=== PATIENT | male | born 1945 | race Caucasian/White ===

== ENCOUNTER 2016-10-08 05:46 | Day surgery (SDC) | payer OTHER ==
--- NOTE | 2016-09-24 14:15 | GHP ---
[f rep st] HISTORY AND PHYSICAL DATE OF ADMISSION: 10/08/2016 HISTORY AND PHYSICAL: The patient returns to our office for further evaluation of his umbilical hernia. Also reports his primary care provider noticed something in his scrotum, according to the patient. The patient denies any significant gastrointestinal, genitourinary symptoms. The patient has not had any surgery in either of these areas, around the umbilicus or in the area of the scrotum. ALLERGIES: No known drug allergies. MEDICATIONS: Viagra p.r.n., aspirin. PAST MEDICAL HISTORY: None. PAST SURGICAL HISTORY: Lumbar diskectomy. 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 Occasional alcohol use. PHYSICAL EXAM: GENERAL: Patient is a pleasant male in no apparent distress. HEAD AND NECK: Normocephalic atraumatic. HEART: Regular rhythm and rate. CHEST: CTA bilaterally. ABDOMEN: Right greater than left inguinal hernias, umbilical hernia, all soft and reducible. EXTREMITIES: No lower extremity edema. IMPRESSION: A 71-year-old male with bilateral right greater than left inguinal hernias, and umbilical hernia. RECOMMENDATION: 1. Laparoscopic bilateral inguinal hernia. 2. Open umbilical hernia repair. These were discussed in detail with the patient with Dr. Monroe, including risks of infection, nerve injury, recurrent scrotal edema, bleeding. Patient elects to proceed with scheduling surgery for October 08, 2016. /[id number]/MODL MTDD
[2016-10-08] MEDS ORDERED: LR 1,000 ML IV ONE (06:10)
[2016-10-08] MEDS ORDERED: PROPOFOL/EMULSION 500 MG/50 ML BOTTLE IV ONE (06:39)
[2016-10-08] MEDS ORDERED: fentaNYL 250 MCG/5 ML INJ ONE (06:39)
[2016-10-08] MEDS ORDERED: LIDOCAINE 2% 5 ML SDV ONE (06:39)
[2016-10-08] MEDS ORDERED: DEXAMETHASONE 4 MG/ML VIAL ONE (06:41)
[2016-10-08] MEDS ORDERED: BUPIVACAINE 0.5% 30 ML SDV ONE (06:47)
[2016-10-08] MEDS ORDERED: ceFAZolin 2 GM/DEXTROSE 100 ML IV ONE (07:00)
[2016-10-08] MEDS ORDERED: MIDAZOLAM 2 MG/2 ML VIAL ONE (07:15)
[2016-10-08] MEDS ORDERED: ROCURONIUM 50 MG/5 ML VIAL ONE (07:30)
[2016-10-08] MEDS ORDERED: SUCCINYLCHOLINE CHLORIDE*ANESTHESIA ONLY*200 MG/10 ML SYR IVP ONE (07:30)
[2016-10-08] MEDS ORDERED: epHEDrine SULFATE 10 MG/ML SYR ONE ×2 (07:47→08:01)
[2016-10-08] MEDS ORDERED: SKIN ADHESIVE (DERMABOND) 1 EACH TP ONE (08:02)
[2016-10-08] MEDS ORDERED: ONDANSETRON 4 MG/2 ML VIAL ONE (08:18)
[2016-10-08] MEDS ORDERED: KETOROLAC 30 MG/1 ML SDV ONE (08:18)
[2016-10-08] MEDS ORDERED: GLYCOPYRROLATE 0.2 MG/1 ML VIAL ONE (08:21)
--- NOTE | 2016-10-19 21:01 | GOP ---
[f rep st] OPERATIVE REPORT DATE OF OPERATION: 10/08/2016 SURGEON: Taj Monroe MD SAP BASIS ARCHITECT: BRIANA Dial ANESTHESIA: General endotracheal. ANESTHESIOLOGIST: Dr. Lew PREOPERATIVE DIAGNOSIS: Right inguinal hernia and umbilical hernia. POSTOPERATIVE DIAGNOSIS: Right inguinal hernia and umbilical hernia. PROCEDURE PERFORMED: Laparoscopic right inguinal hernia repair and exploration of the left side, op en umbilical hernia repair with mesh. FINDINGS: Patient was found to have a 3 cm umbilical defect. He had a right direct hernia with no evidence of herniation on the left. ESTIMATED BLOOD LOSS: Negligible. DESCRIPTION OF PROCEDURE: Patient taken to the operating room, where he received satisfactory gener al endotracheal anesthesia by Dr. Lew, placed in the supine position, and prepped and draped in the usual sterile fashion. Infraumbilical incision was made, carried down to the rectus sheath which was incised. A subfascial tunnel was developed in the preperitoneal space. That was dissected free with a balloon dissector, which was replaced with CO2 insufflation trocar, and 2 other trocars were placed in the midline und er direct vision. Rajat's ligament was exposed bilaterally. The cords were mobilized. Peritoneum was dissected off the cord structures. There were no indirect sacs. On the left, there was no evidence of herniation . On the right, a direct defect was reduced. A Covidien polyester mesh patch was placed over the in guinal floor and anchored in place with AbsorbaTack, securing it to Rajat's ligament, the lacunar l igament, the anterior abdominal wall, and the lateral abdominal wall outside the internal ring. Hem ostasis was assured. Trocars were removed under direct vision. Pneumoperitoneum was released. Trocar sites were closed with 0 Vicryl for the fascia, 4-0 Monocryl subcuticular stitch for the skin. Attention was turned to the umbilical hernial sac. This was dissected free from the skin of the umb ilicus and the surrounding subcutaneous tissue. The sac was opened at the fascial level. The craig nts were reduced. A preperitoneal subfascial space was created, and a polypropylene mesh patch was inserted and anchored around the periphery with interrupted 0 Ethibond mattress sutures. The defect itself was then closed directly with interrupted 0 Ethibond [id number] sutures. The wound was infiltrated with 0.5% Marcaine. Subcu was closed with 3-0 Vicryl, the skin with a 4-0 Monocryl subcuticular stitch. There were no complications. He was taken to the recovery room in g ood condition. /[id number]/MODL
== END 2016-10-08 11:05 | disposition home or self-care (01) ==
LOC: FSGY 05:46
PROVIDERS: ATTEND Surgery
PROC: 0YU54JZ Supplement Right Inguinal Region with Synthetic Substitute, Percutaneous Endoscopic Approach (ICD-10-PCS; principal; 2016-10-08 07:25)
PROC: 0WUF0JZ Supplement Abdominal Wall with Synthetic Substitute, Open Approach (ICD-10-PCS; principal; 2016-10-08 07:25)
DX: K40.20 Bilateral inguinal hernia, without obstruction or gangrene, not specified as recurrent (principal); K42.9 Umbilical hernia without obstruction or gangrene; Z53.31 Laparoscopic surgical procedure converted to open procedure; N40.0 Benign prostatic hyperplasia without lower urinary tract symptoms; Z85.828 Personal history of other malignant neoplasm of skin
CPT/HCPCS: 49585; 49650; C1727; C1781; J0330; J0690; J1100; J1885; J2250; J2405; J2704; J3010

== ENCOUNTER → 2017-12-05 | Outpatient (CLI) | payer OTHER | LOC: BMCIMAGING 08:39 | PROVIDERS: ATTEND Family Medicine | DX: I70.0 Atherosclerosis of aorta (principal); R93.5 Abnormal findings on diagnostic imaging of other abdominal regions, including retroperitoneum ==

== ENCOUNTER → 2017-12-20 | Outpatient (CLI) | payer OTHER ==
[~2017-12-20] MED LIST: IOPAMIDOL (ISOVUE-300) 100 ML BTL ONE
== END ==
LOC: FIMAGING 14:48
PROVIDERS: ATTEND Family Medicine
DX: K76.89 Other specified diseases of liver (principal); N13.2 Hydronephrosis with renal and ureteral calculous obstruction; I25.10 Atherosclerotic heart disease of native coronary artery without angina pectoris
CPT/HCPCS: 74160; Q9967

== ENCOUNTER 2018-06-17 12:25 | Inpatient (IN) | payer OTHER ==
[2018-06-17 13:22] LABS: PLATELET COUNT 333 10^3/uL (150-400)
[2018-06-17] MEDS ORDERED: HYDROmorphONE/DILAUDID 2 MG/ML INJ IVP ONE (13:40)
[2018-06-17] MEDS ORDERED: ONDANSETRON 4 MG/2 ML VIAL IVP ONE (13:40)
--- NOTE | 2018-06-17 13:45 | EDPHY ---
H & P Stated Complaint: c/o upper abd pressure/discomfort, very tender to palpation, no other sx Time Seen by Provider: 06/17/18 13:00 HPI/ROS: CHIEF COMPLAINT: Severe epigastric pain HISTORY OF PRESENT ILLNESS: 73-year-old male presents with severe epigastric pain. Onset of abdominal pain 3 hr ago. The pain waxes and wanes and is located in the upper abdomen. No radiation of pain and no associated symptoms. Prior similar symptoms over the last few months, usually lasting 1-2 hours and relieved with Tums. Possibly aggravated by food. History of heavy alcohol use, quit 6 months ago. REVIEW OF SYSTEMS: complete 10 point ROS reviewed and is negative except for the noted elements in the HPI - Medical/Surgical History Hx Asthma: No Hx Chronic Respiratory Disease: No Hx Diabetes: No Hx Cardiac Disease: Yes Hx Renal Disease: No Hx Cirrhosis: No Hx Alcoholism: No Hx HIV/AIDS: No Hx Splenectomy or Spleen Trauma: No Other PMH: hyperlipidemia, bph, hernia repair, back surg, tonsillectomy - Social History Smoking Status: Former smoker Alcohol Use: Sober Drug Use: None - Physical Exam Exam: General Appearance: Alert, pleasant, appears in pain Eyes: Pupils equal and round, no conjunctival pallor or injection ENT, Mouth: Mucous membranes moist Neck: Normal inspection Respiratory: Lungs are clear to auscultation Cardiovascular: Regular rate and rhythm Gastrointestinal: Abdomen is soft, epigastric and right upper quadrant tenderness, no peritoneal signs Neurological: A&O, nonfocal exam Skin: Warm and dry, no rash Extremities: Nontender, no pedal edema Psychiatric: Mood and affect normal Constitutional: Initial Vital Signs Temperature (C) 36.5 C 06/17/18 12:47 Heart Rate 57 L 06/17/18 12:47 Respiratory Rate 18 06/17/18 12:47 Blood Pressure 108/71 06/17/18 12:47 O2 Sat (%) 94 06/17/18 12:47 O2 Delivery Mode Room Air Allergies/Adverse Reactions: No Known Allergies Allergy (Verified 06/17/18 12:51) Home Medications: Medication Instructions Recorded Aspirin EC [Aspirin EC 81 mg (*)] 81 mg PO DAILY 06/17/18 Calcium Carbonate [Oyster Shell 500 mg PO DAILY 06/17/18 Calcium 500 mg (*)] Glucosamine Sulfate [Glucosamine 500 mg PO DAILY 06/17/18 Sulfate 500 MG (*)] Multivitamins [Multivitamin (*)] 1 each PO DAILY 06/17/18 Rosuvastatin Calcium [Rosuvastatin 20 mg PO DAILY 06/17/18 Calcium] Tamsulosin HCl [Tamsulosin HCl] 0.8 mg PO DAILY 06/17/18 Terbinafine HCl [Terbinafine HCl] 250 mg PO DAILY 06/17/18 Medical Decision Making ED Course/Re-evaluation: This patient presents with severe epigastric pain, concerning for cholecystitis/ pancreatitis. Dilaudid and Zofran IV given with some relief in pain. Old medical record reviewed. CT scan of the abdomen/pelvis in 12/2017 reveals CAD, aortic calcification, no AAA. Right upper quadrant ultrasound ordered. 2:45 p.m.-LFT's elevated, lipase pending. Ultrasound results discussed with Dr. Haque. Distal common bile duct is dilated, gallbladder wall slightly thickened, no gallstones present. Elevated elevated c/w acute pancreatitis, query CBD stone. Results d/w pt and . The hospitalist service was consulted for admission. Differential Diagnosis: Differential diagnosis includes though it is not limited to appendicitis, cholecystitis, diverticulitis, pyelonephritis, bowel perforation, small bowel obstruction. - Data Points Laboratory Results: Laboratory Results 06/17/18 13:05 06/17/18 13:05 Medications Given: Aspirin Buffered (Aspirin Ec) 81 mg PO DAILY JOSE ALBERTO Stop: 12/15/18 08:59 Last Admin: 06/18/18 08:49 Dose: 81 mg Calcium Carbonate (Oyster Shell Calcium) 500 mg PO DAILY JOSE ALBERTO Stop: 12/15/18 08:59 Last Admin: 06/18/18 08:49 Dose: 500 mg Enoxaparin Sodium (Lovenox) 40 mg SC DAILY JOSE ALBERTO Stop: 12/15/18 08:59 Last Admin: 06/18/18 08:47 Dose: 40 mg Glucosamine Sulfate (Glucosamine Sulfate) 500 mg PO DAILY JOSE ALBERTO Stop: 12/15/18 08:59 Last Admin: 06/18/18 08:49 Dose: 500 mg Sodium Chloride (Ns) 1,000 mls @ 150 mls/hr IV CONT JOSE ALBERTO Stop: 12/14/18 14:59 Last Admin: 06/18/18 08:57 Dose: 1,000 mls Ketorolac Tromethamine (Toradol) 15 - 30 mg IVP Q6HRS PRN PRN Reason: Pain, Moderate Stop: 06/22/18 17:59 Last Admin: 06/18/18 06:03 Dose: 15 mg Multivitamins (Tab-A-Dari) 1 each PO DAILY JOSE ALBERTO Stop: 12/15/18 08:59 Last Admin: 06/18/18 08:49 Dose: 1 each Tamsulosin HCl (Flomax) 0.8 mg PO DAILY JOSE ALBERTO Stop: 12/15/18 08:59 Last Admin: 06/18/18 08:49 Dose: 0.8 mg Discontinued Medications Hydromorphone HCl (Dilaudid) 0.5 mg IVP EDNOW ONE Stop: 06/17/18 13:41 Last Admin: 06/17/18 13:44 Dose: 0.5 mg Influenza Virus Vaccine Quadrival (Flulaval Quad [id number] (6mo+)) 0.5 ml IM .ONCE ONE Stop: 06/18/18 10:51 Last Admin: 06/18/18 11:15 Dose: 0.5 ml Ondansetron HCl (Zofran) 4 mg IVP EDNOW ONE Stop: 06/17/18 13:41 Last Admin: 06/17/18 13:45 Dose: 4 mg Departure - Departure Disposition: [facility] Acute Clinical Impression: Acute pancreatitis Qualifiers: Pancreatitis type: other Acute pancreatitis complication: unspecified Qualified Code(s): K85.80 - Other acute pancreatitis without necrosis or infection Condition: Fair
[2018-06-17] MEDS ORDERED: ONDANSETRON 4 MG/2 ML VIAL IVP PRN (14:52)
[2018-06-17] MEDS ORDERED: ONDANSETRON DISINTEGRATING 4 MG TAB PO PRN (14:52)
[2018-06-17] MEDS ORDERED: PROMETHAZINE HCL 25 MG/ML INJ IVP PRN (14:52)
[2018-06-17] MEDS ORDERED: PROMETHAZINE HCL 25 MG TAB PO PRN (14:52)
[2018-06-17] MEDS ORDERED: HYDROmorphONE/DILAUDID 1 MG/ML INJ IVP PRN (14:52)
--- NOTE | 2018-06-17 15:42 | ASMTCMCOM ---
CM Note CM Note Notes: Pt is a 73 y/o man admitted for severe epigastric pain. Pt has a hx of heavy etoh use. Pt quit about 6 months ago. Pt will most likely d/c independent when medically stable. No therapies ordered at this time. CM available for changes. Plan: Independent Date Signed: 06/17/2018 03:42 PM Electronically Signed By:RYANN Cabrera
--- NOTE | 2018-06-17 15:53 | CPEKG ---
Test Reason : OPEN Blood Pressure : / mmHG Vent. Rate : 081 BPM Atrial Rate : 082 BPM P-R Int : 162 ms QRS Dur : 101 ms QT Int : 375 ms P-R-T Axes : 053 -49 041 degrees QTc Int : 436 ms Sinus rhythm Left anterior fascicular block Confirmed by Beba Arredondo ([id number]) on 06/17/2018 3:53:24 PM Referred By: Confirmed By:Beba Arredondo
--- NOTE | 2018-06-17 16:18 | PDGENHP ---
History and Physical - Chief Complaint Acute abdominal pain - History of Present Illness Primary care provider: Dr. Sim Huerta HPI: 73-year-old male presenting with acute abdominal pain located in the epigastric area, characterized as severe pain which waxes and wanes, onset of symptoms at 10:00 a.m. On the day of presentation and duration persistent thereafter. The patient was eating grits with butter and eggs for breakfast during his onset of symptoms, watching the [employer] game. He reports that he has experienced similar pain in the similar location intermittently in the past, most notably in the evenings over the past 6 weeks, with duration of symptoms approximately 1-2 hours and alleviation with Tums. On the day of this presentation, the symptom was significantly worse, and was only alleviated with some Dilaudid received in the emergency department. Since receiving that medication, patient has had some associated fatigue, hypoxia, with an SpO2 84% on room air and ashen appearance. History Information - Allergies/Home Medication List Allergies/Adverse Reactions: No Known Allergies Allergy (Verified 06/17/18 12:51) Home Medications: Aspirin 10/07/16 [Last Taken 10/07/16] Herbals/Supplements -Info Only 10/07/16 [Last Taken 10/07/16] Viagra 10/07/16 [Last Taken 10/01/16] Rosuvastatin Calcium 06/17/18 [Last Taken Unknown] I have personally reviewed and updated: family history, medical history, social history, surgical history - Past Medical History Additional medical history: BPH. Hyperlipidemia. In onychyomycosis, initiated medication 3 days ago. Numerous skin cancers. Numerous colonic polyps - Surgical History Additional surgical history: Umbilical hernia repair 2017. Tonsillectomy. Back surgery several decades ago. Numerous colonoscopies with polyp removals - Family History Additional family history: Mother with colon cancer, no family history of biliary cancers - Social History Smoking Status: Former smoker (With intermittent usage) Alcohol Use: Sober (Quit 6 months ago but with previous heavy usage) Drug Use: None Additional social history: Independent in his ADLs Review of Systems Review of Systems: ROS: 10pt was reviewed & negative except for what was stated in HPI & below Constitutional: Reports: other (Lethargy) Gastrointestinal: Reports: abdominal pain, diarrhea (For the past 20 years) Physical Exam Physical Exam: Temp Pulse Resp BP Pulse Ox 36.7 C 83 18 161/68 H 92 06/17/18 15:27 06/17/18 15:30 06/17/18 15:27 06/17/18 15:27 06/17/18 15:30 O2 (L/minute) 3 Constitutional: no apparent distress, uncomfortable, other (Acutely ill- appearing, ashen appearance) Eyes: PERRL, anicteric sclera, EOMI Ears, Nose, Mouth, Throat: moist mucous membranes, hearing normal, ears appear normal, no oral mucosal ulcers Cardiovascular: regular rate and rhythym, systolic murmur (2/6 systolic at the sternum), No edema Respiratory: reduced air movement (Bilateral bases), No expiratory wheeze, No inspiratory crackles, No bronchial breath sounds Gastrointestinal: normoactive bowel sounds, tenderness (Midepigastric area), No hepatosplenomegally, No guarding, No distension Skin: warm, No rash Neurologic: AAOx3, No facial droop Psychiatric: not anxious, not encephalopathic, thought process linear, flat affect, No agitated Lab Data & Imaging Review 06/17/18 13:05 06/17/18 13:05 WBC 11.96 10^3/uL (3.80-9.50) H 06/17/18 13:05 RBC 4.96 10^6/uL (4.40-6.38) 06/17/18 13:05 Hgb 15.7 g/dL (13.7-17.5) 06/17/18 13:05 Hct 43.7 % (40.0-51.0) 06/17/18 13:05 MCV 88.1 fL (81.5-99.8) 06/17/18 13:05 MCH 31.7 pg (27.9-34.1) 06/17/18 13:05 MCHC 35.9 g/dL (32.4-36.7) 06/17/18 13:05 RDW 14.4 % (11.5-15.2) 06/17/18 13:05 Plt Count 333 10^3/uL (150-400) 06/17/18 13:05 MPV 10.2 fL (8.7-11.7) 06/17/18 13:05 Neut % (Auto) 82.0 % (39.3-74.2) H 06/17/18 13:05 Lymph % (Auto) 9.4 % (15.0-45.0) L 06/17/18 13:05 Hubbard % (Auto) 6.6 % (4.5-13.0) 06/17/18 13:05 Eos % (Auto) 1.2 % (0.6-7.6) 06/17/18 13:05 Baso % (Auto) 0.5 % (0.3-1.7) 06/17/18 13:05 Nucleat RBC Rel Count 0.0 % (0.0-0.2) 06/17/18 13:05 Absolute Neuts (auto) 9.80 10^3/uL (1.70-6.50) H 06/17/18 13:05 Absolute Lymphs (auto) 1.13 10^3/uL (1.00-3.00) 06/17/18 13:05 Absolute Monos (auto) 0.79 10^3/uL (0.30-0.80) 06/17/18 13:05 Absolute Eos (auto) 0.14 10^3/uL (0.03-0.40) 06/17/18 13:05 Absolute Basos (auto) 0.06 10^3/uL (0.02-0.10) 06/17/18 13:05 Absolute Nucleated RBC 0.00 10^3/uL (0-0.01) 06/17/18 13:05 Immature Gran % 0.3 % (0.0-1.1) 06/17/18 13:05 Immature Gran # 0.04 10^3/uL (0.00-0.10) 06/17/18 13:05 Sodium 141 mEq/L (135-145) 06/17/18 13:05 Potassium 4.3 mEq/L (3.3-5.0) 06/17/18 13:05 Chloride 103 mEq/L (97-110) 06/17/18 13:05 Carbon Dioxide 28 mEq/l (22-31) 06/17/18 13:05 Anion Gap 10 mEq/L (6-14) 06/17/18 13:05 BUN 23 mg/dL (7-23) 06/17/18 13:05 Creatinine 1.1 mg/dL (0.7-1.3) 06/17/18 13:05 Estimated GFR > 60 06/17/18 13:05 Glucose 106 mg/dL (70-100) H 06/17/18 13:05 Calcium 10.4 mg/dL (8.5-10.4) 06/17/18 13:05 Total Bilirubin 1.3 mg/dL (0.1-1.4) 06/17/18 13:05 Conjugated Bilirubin 0.9 mg/dL (0.0-0.5) H 06/17/18 13:05 Unconjugated Bilirubin 0.4 mg/dL (0.0-1.1) 06/17/18 13:05 AST 201 IU/L (17-59) H 06/17/18 13:05 ALT 249 IU/L (21-72) H 06/17/18 13:05 Alkaline Phosphatase 261 IU/L (38-126) H 06/17/18 13:05 Total Protein 7.0 g/dL (6.3-8.2) 06/17/18 13:05 Albumin 4.0 g/dL (3.5-5.0) 06/17/18 13:05 Lipase 81220 IU/L (23-300) H 06/17/18 13:05 Urine Color YELLOW 06/17/18 15:05 Urine Appearance MODERATELY TURBID 06/17/18 15:05 Urine pH 7.0 (5.0-7.5) 06/17/18 15:05 Ur Specific [place] 1.018 (1.002-1.030) 06/17/18 15:05 Urine Protein NEGATIVE (NEGATIVE) 06/17/18 15:05 Urine Ketones NEGATIVE (NEGATIVE) 06/17/18 15:05 Urine Blood NEGATIVE (NEGATIVE) 06/17/18 15:05 Urine Nitrate NEGATIVE (NEGATIVE) 06/17/18 15:05 Urine Bilirubin NEGATIVE (NEGATIVE) 06/17/18 15:05 Urine Urobilinogen NEGATIVE EU (0.2-1.0) 06/17/18 15:05 Ur Leukocyte Esterase NEGATIVE (NEGATIVE) 06/17/18 15:05 Urine Glucose NEGATIVE (NEGATIVE) 06/17/18 15:05 Visualized and Interpreted EKG results: Yes EKG Interpretation: Positive for: other (Normal sinus rhythm with left anterior fascicular block) Assessment & Plan Assessment: 73-year-old male presents with acute pancreatitis Plan: 1. Pancreatitis. Acute, new problem this provider, further workup indicated. Potential etiologies include gallstone induced verses statin induced verses chronic damage from alcohol use and triggered by fatty meal, lipase 16,000 -outside records reviewed including 12/20/[address] which demonstrated left lobe hepatic hemangioma but no other biliary abnormalities at that time, no evidence of underlying malignancy at that time -significant transaminitis with ultrasound demonstrating dilated distal common bile duct with gallbladder thickening -will get MRCP to evaluate for gallstone pancreatitis -NPO with sips and chips, high rate IV fluids, supportive pain management -cycle in IV Toradol given possible respiratory suppression from opiate -heat pad supportively -check hemoglobin A1c given long history of alcohol use, currently sober -patient appears acutely ill and his situation certainly could evolve into necrotizing pancreatitis, will get blood cultures -if the patient becomes febrile or is clinically worsening, will have low threshold to initiate IV antibiotics and get stat CT with IV contrast of the abdomen 2. Suspected atelectasis. Hypoxia, hypoventilation, check chest x-ray to evaluate the extent 3. Hyperlipidemia. Hold statin given potential interaction with pancreatitis Diet. NPO with IV fluids Prophylaxis. High risk patient, Lovenox 40 Code. Full Disposition. Anticipated discharge uncertain this time, anticipated length stay is greater than 48 hr for reasonable medical necessity including acute pancreatitis requiring IV pain medications., NPO status, IV fluids. Discussed with Dr. Beba Arredondo, we both agree the patient warrants inpatient admission and is safe for the [facility] floor.
[2018-06-17] MEDS ORDERED: GADOBUTROL 10 ML VIAL IVP ONE (16:20)
[2018-06-17] MEDS: KETOROLAC 15 MG/1 ML SDV IVP PRN (16:59)
--- NOTE | 2018-06-17 19:44 | PDMN ---
Medical Necessity Medical necessity: MCG: M250 pancreatitis. pt presents with acute abd. pain hypoxia ( 84%) in ED S/p dilaudid, Lipase 16,000, sig. transaminitis U/S demonstrating dilated distal common bile duct with gallbladder thckening. pt will be NPO with IVF, IV pain, anticipate > 2 MN for acutely in pt.
[2018-06-17] MEDS: NS 1,000 ML IV SCH (22:10)
[2018-06-18] MEDS: NS 1,000 ML IV SCH ×2 (05:00→08:57)
[2018-06-18] MEDS: KETOROLAC 15 MG/1 ML SDV IVP PRN (06:03)
[2018-06-18 06:10] LABS: PLATELET COUNT 285 10^3/uL (150-400)
[2018-06-18] MEDS: TAMSULOSIN HCL 0.4 MG CAP PO SCH (08:49)
[2018-06-18] MEDS ORDERED: ASPIRIN EC 81 MG TAB PO SCH (09:00)
[2018-06-18] MEDS ORDERED: MULTIVITAMINS 1 EACH TAB PO SCH (09:00)
[2018-06-18] MEDS ORDERED: GLUCOSAMINE SULF 500 MG CAP PO SCH (09:00)
[2018-06-18] MEDS ORDERED: CALCIUM CARBONATE 500 MG TAB PO SCH (09:00)
[2018-06-18] MEDS ORDERED: ENOXAPARIN 40 MG/0.4 ML SYR SC SCH (09:00)
[2018-06-18 14:08] LABS: PLATELET COUNT 243 10^3/uL (150-400)
--- NOTE | 2018-06-18 14:50 | SOAPPROG ---
ABHIJIT Progress Note Assessment/Plan: Assessment: Dr. Ramirez will see in am and discuss ERCP followed by jovany camara under 1 anesthesia Plan: 06/18/18 14:49 Objective: Vital Signs Temp Pulse Resp BP Pulse Ox 36.8 C 54 L 12 98/60 L 95 06/18/18 08:00 06/18/18 08:00 06/18/18 08:00 06/18/18 08:00 06/18/18 08:00 Laboratory Results 06/18/18 13:55 06/18/18 05:10 06/17/18 06/18/18 06/19/18 05:59 05:59 05:59 Intake Total 0 2131 Output Total 400 Balance -400 2131 ICD10 Worksheet Patient Problems: Problems Problem Status Onset Acute pancreatitis Acute
--- NOTE | 2018-06-18 14:56 | HOSPPROG ---
Hospitalist Progress Note Assessment/Plan: 73-year-old male presents with acute pancreatitis 1. Pancreatitis, acute -ongoing transaminitis, very elev WBC, afebrile, increasing bili, reviewed MRCP -discussed with Elias Shafer and Margo, plan for ERCP and lap jax tomorrow -outside records 12/20/[address] which demonstrated left lobe hepatic hemangioma but no other biliary abnormalities at that time, no evidence of underlying malignancy at that time -NPO with sips and chips, IV fluids, supportive pain management -hemoglobin A1c given long history of alcohol use, currently sober, lab pending -bd cxs pending 2. atelectasis -encourage IS 3. Hyperlipidemia. Hold statin given potential interaction with pancreatitis Diet. NPO with IV fluids Prophylaxis. High risk patient, Lovenox FULL CODE PCP Dr Huerta Disposition. Anticipated discharge uncertain this time, anticipated length stay is greater than 48 hr for reasonable medical necessity including acute pancreatitis requiring IV pain medications, NPO status, IV fluids, planned procedures tomorrow Subjective: Pain still present, was much worse in the AM- OK control now. Denies n/v. Was planning to go to [place] this week- advised him this was very unlikely! Objective: Vital Signs Temp Pulse Resp BP Pulse Ox 98.2 F 54 L 12 98/60 L 95 06/18/18 08:00 06/18/18 08:00 06/18/18 08:00 06/18/18 08:00 06/18/18 08:00 Laboratory Results 06/18/18 13:55 06/18/18 05:10 06/17/18 06/18/18 06/19/18 11:59 11:59 11:59 Intake Total 2131 Output Total 400 Balance 1731 - Physical Exam Constitutional: no apparent distress, appears nourished Eyes: anicteric sclera Ears, Nose, Mouth, Throat: moist mucous membranes, hearing normal Cardiovascular: regular rate and rhythym, No edema Respiratory: no respiratory distress, no rales or rhonchi, clear to auscultation Gastrointestinal: normoactive bowel sounds, No guarding, No rebound, No distension Skin: warm, normal color Psychiatric: interacting appropriately, not anxious, not encephalopathic, thought process linear ICD10 Worksheet Patient Problems: Problems Problem Status Onset Acute pancreatitis Acute
[2018-06-18] MEDS: D5W 1/2 NS W/ 20 KCl/L 1,000 ML IV SCH (15:18)
--- NOTE | 2018-06-18 15:24 | GCON ---
GI INPATIENT CONSULTATION DATE OF CONSULTATION: 06/18/2018 I was kindly requested to see Kulwant by Dr. Avis Carmona in consultation for a chief complaint of abdominal pain. He is a 73-year-old white male who presented with acute epigastric pain. He has had similar pain over the last 6 weeks. The pain was severe. It has given him some fatigue. He denies fever, rigors, chills. No presenting vomiting. PAST MEDICAL HISTORY: 1. As above. 2. BPH. 3. Elevated lipids. 4. Umbilical hernia repair. 5. Tonsillectomy. 6. Back surgery. 7. Otherwise, noncontributory. INPATIENT MEDICATIONS: Include aspirin, Lovenox, Toradol as needed, IV fluids, normal saline 150 mL an hour and Flomax. ALLERGIES: No known drug allergies. SOCIAL HISTORY: Previous heavy alcohol use, but quit 6 months ago. FAMILY HISTORY: Negative for similar abdominal pain. REVIEW OF SYSTEMS: Positive pertinent review of systems as per my HPI. Otherwise, a complete review of systems is negative. PHYSICAL EXAM: CONSTITUTIONAL: Nontoxic-appearing, pleasant gentleman. VITAL SIGNS: Stable. SKIN: Warm, dry. EYES: Pupils equal, round, reactive to light and accommodation. EARS, NOSE MOUTH AND THROAT: Oropharynx without masses, moist mucosa. CARDIOVASCULAR: Normal S2, normal PMI. RESPIRATORY: Lungs clear to auscultation and percussion anteriorly. GASTROINTESTINAL: Abdomen with some moderate epigastric tenderness. Soft. NEUROLOGIC: Grossly nonfocal, cranial nerves grossly intact. PSYCHIATRIC: Orientation, insight appropriate. MUSCULOSKELETAL: Strength grossly normal throughout, normal station. LABORATORIES: [place] [id number]. Normal basic metabolic panel. Total bilirubin 5 with a direct bilirubin of 3.9. AST 228 with an ALT of 412. Alkaline phosphatase 218. Lipase yesterday 16,532. Urinalysis negative. MRCP shows acute pancreatitis. Gallstones. Question of a small CBD stone 1 cm common bile duct. ASSESSMENT: Gallstone pancreatitis. PLAN: 1. Will use today to continue to let the pancreas "cool off". 2. Recheck lipase in the morning. 3. Recheck liver function tests in the morning. If they remain elevated, and his lipase and pancreatitis have improved, we can then proceed with a preoperative ERCP. If they are showing a decreasing trend, we will hold off on ERCP, and instead the patient will undergo laparoscopic cholecystectomy with an intraoperative cholangiogram. If the intraoperative cholangiogram is positive, we can always do a postop ERCP, with a good chance of success. 4. We will recheck a white count tomorrow to make sure it is improving. 5. We will change his IV fluids to D51/2NS with 20 mEq of potassium chloride to run at 125 mL an hour. 6. We will stop his aspirin, Lovenox, and p.r.n. Toradol for potential upcoming procedures. Thank you for allowing me to help with the management of this patient. /[id number]/MODL MTDD
[2018-06-18] MEDS: HYDROmorphONE/DILAUDID 2 MG TAB PO PRN (17:09)
[2018-06-19] MEDS: D5W 1/2 NS W/ 20 KCl/L 1,000 ML IV SCH ×2 (01:55→09:59)
[2018-06-19] MEDS: HYDROmorphONE/DILAUDID 2 MG TAB PO PRN ×2 (07:43→18:20)
[2018-06-19] MEDS ORDERED: AMPICILLIN/SULBACTAM 3 GM in NS 100 ML IV ONE (08:45)
--- NOTE | 2018-06-19 08:52 | SOAPPROG ---
SOAP Progress Note Assessment/Plan: Assessment/Plan: GS pancreatitis. Still with some epigastric pain, but could be a contribution from his probable cbd stone(s). Lipase better. Some decrease in LFTs, but alk phos about the same. With this, and considering his six weeks of similar symptoms, suspect he still has a cbd stone(s), that is unlikely to pass. In the same token, if relatively impacted in the ampulla, removal should help improve pancreatitis. - ERCP today; with the above, some increased risk, in terms of worsening pancreatitis, but suspect the benefits outweigh the risks. Lap jax to follow. - unasyn x 1, for the above 06/19/18 12:32 Subjective: cc: pancreatitis Objective: Vital Signs Temp Pulse Resp BP Pulse Ox 36.8 C 54 L 16 140/74 H 95 06/19/18 07:07 06/19/18 07:07 06/19/18 07:07 06/19/18 07:07 06/19/18 07:07 Laboratory Results 06/19/18 04:15 06/19/18 04:15 06/18/18 06/19/18 06/20/18 05:59 05:59 05:59 Intake Total 0 4281 Output Total 400 550 Balance -400 3731 Physical Exam - Physical Exam General Appearance: WD/WN, alert, no apparent distress EENT: PERRL/EOMI, normal ENT inspection, pharynx normal, TMs normal Neck: non-tender, full range of motion, supple, normal inspection Respiratory: chest non-tender, lungs clear, normal breath sounds Cardiac/Chest: normal peripheral pulses, regular rate, rhythm Peripheral Pulses: 2+: carotid (R), carotid (L), femoral (R), femoral (L), dorsalis-pedis (R), dorsalis-pedis (L) Abdomen: normal bowel sounds, soft, No non-tender (moderate epigastric tenderness.) Male Genitalia: deferred Rectal: deferred Back: Normal inspection Skin: normal color, warm/dry Lymphatic: no adenopathy Extremities: normal range of motion, non-tender, normal inspection, normal capillary refill Neuro/Psych: no motor/sensory deficits, alert, normal mood/affect, oriented x 3 ICD10 Worksheet Patient Problems: Problems Problem Status Onset Acute pancreatitis Acute
[2018-06-19] MEDS ORDERED: FAMOTIDINE 20 MG/NACL 50 ML IV SCH (09:00)
[2018-06-19] MEDS: HYDROmorphONE/DILAUDID 2 MG/ML INJ IVP PRN ×3 (09:25→15:25)
[2018-06-19] MEDS: FAMOTIDINE 20 MG TAB PO SCH (09:42)
[2018-06-19] MEDS: TAMSULOSIN HCL 0.4 MG CAP PO SCH (09:42)
[2018-06-19] MEDS ORDERED: IOTHALAMATE MEG (CONRAY) 50 ML VIAL IV ONE (10:44)
[2018-06-19] MEDS ORDERED: GLUCAGON HCL 1 MG VIAL ONE (10:44)
--- NOTE | 2018-06-19 10:53 | GCON ---
DATE OF CONSULTATION: 06/19/2018 CHIEF COMPLAINT: Epigastric pain. HISTORY OF PRESENT ILLNESS: This is a 73-year-old male admitted to the hospital now on the with epigastric pain. The patient describes an acute onset epigastric pain that came on suddenly. He de nies having any pain previous to this and denies having any exacerbating factors. Food seems to make it worse. Rest and narcotics seem to make it better. It is currently 7/10 in intensity, without ra diation. PAST MEDICAL HISTORY: BPH, hyperlipidemia, onychomycosis, numerous superficial skin cancers, and num erous colonic polyps. PAST SURGICAL HISTORY: Umbilical and inguinal hernia repair in 2017, tonsillectomy, back surgeries, and numerous colonoscopies. FAMILY HISTORY: Noncontributory. CURRENT MEDICATIONS: Include aspirin, Viagra, herbal supplements, and Crestor. SOCIAL HISTORY: Former smoker. Previous heavy alcohol use. Denies illicit drug use. REVIEW OF SYSTEMS: A full 10-point review was performed. PHYSICAL EXAMINATION: VITAL SIGNS: Temperature 36.8, blood pressure is 140/74, his heart rate is 54 , and he is 95% on room air. CONSTITUTIONAL: He is alert, uncomfortable, in no apparent distress. E YES: His pupils are equal, round, and reactive to light and accommodation. He has anicteric sclerae . EARS, NOSE, MOUTH, THROAT: He has dry mucous membranes. His hearing is normal. CARDIOVASCULAR: He has a regular rate and rhythm, without any appreciable rubs. He does have a systolic ejection mu rmur. RESPIRATORY: No wheezes, no rhonchi. He is otherwise clear. GI: He is tender to palpation in the epigastrium, without rebound tenderness. Scars consistent with previous repair. SKIN: Warm. No rashes. LABORATORY DATA: White blood cell count down, 17.9 from 22.5. Chemistry shows an elevated conjugate d bilirubin at 3.4, an elevated unconjugated bilirubin at 2.6. Both of these are down from 5.6 and 4 .5, respectively. AST and ALT are elevated at 86 and 234. His alkaline phosphatase is high at 224. His lipase is still elevated at 4000, down from 16,000 two days ago. IMAGING: Includes a right upper quadrant ultrasound, which shows a dilated common duct, borderline g allbladder wall thickening with sludge, no pericholecystic fluid, and abdominal MRI, which shows acut e pancreatitis, without any other suggestive findings. These images were personally reviewed. ASSESSMENT/PLAN: A 73-year-old male with gallstone pancreatitis. The patient still has some tendern ess, but this appears to be getting better. His lipase is improving. His LFTs are still elevated. Discussed with the patient the plan will be to do ERCP today, followed with concomitant laparoscopic cholecystectomy. Risks, benefits, and alternatives were discussed. Consent was signed. He wishes t o proceed. /[id number]/MODL
[2018-06-19] MEDS ORDERED: BUPIVACAINE 0.5% 30 ML SDV ONE (12:00)
[2018-06-19] MEDS ORDERED: ceFAZolin 1 GM/5 ML SYR ONE (12:00)
[2018-06-19] MEDS ORDERED: HEPARIN 1000 UNIT/1 ML MDV ONE (12:01)
[2018-06-19] MEDS ORDERED: LR 1,000 ML IV ONE (12:14)
[2018-06-19] MEDS ORDERED: MIDAZOLAM 2 MG/2 ML VIAL IVP ONE (12:18)
--- NOTE | 2018-06-19 12:18 | PDANEPAE ---
ANE History of Present Illness Laparoscopic cholecystectomy, ERCP ANE Past Medical History - Cardiovascular History Hx Hypertension: No Hx Arrhythmias: No Hx Chest Pain: No Hx Coronary Artery / Peripheral Vascular Disease: No Hx CHF / Valvular Disease: No Hx Palpitations: No - Pulmonary History Hx COPD: No Hx Asthma/Reactive Airway Disease: No Hx Recent Upper Respiratory Infection: No Hx Oxygen in Use at Home: No Hx Sleep Apnea: No Sleep Apnea Screening Result - Last Documented: Positive - Neurologic History Hx Cerebrovascular Accident: No Hx Seizures: No Hx Dementia: No - Endocrine History Hx Diabetes: No - Renal History Hx Renal Disorders: No Renal History Comment: BPH - Liver History Hx Hepatic Disorders: No - Neurological & Psychiatric Hx Hx Neurological and Psychiatric Disorders: No - Cancer History Hx Cancer: No Cancer History Comment: SKIN CA REMOVED - Congenital Disorder History Hx Congenital Disorders: No - GI History Hx Gastrointestinal Disorders: No - Other Health History Other Health History: NEG - Chronic Pain History Chronic Pain: No - Surgical History Prior Surgeries: LAMINECTOMY. COLONOSCOPIES ANE Review of Systems Review of systems is: negative Review of Systems: ANE Patient History - Allergies Allergies/Adverse Reactions: No Known Allergies Allergy (Verified 06/17/18 12:51) - Home Medications Home medications: home medication list seen and reviewed Home Medications: Aspirin EC [Aspirin EC 81 mg (*)] 81 mg PO DAILY 06/17/18 [Last Taken 06/16/18] Calcium Carbonate [Oyster Shell Calcium 500 mg (*)] 500 mg PO DAILY 06/17/18 [ Last Taken 06/16/18] Glucosamine Sulfate [Glucosamine Sulfate 500 MG (*)] 500 mg PO DAILY 06/17/18 [ Last Taken 06/16/18] Multivitamins [Multivitamin (*)] 1 each PO DAILY 06/17/18 [Last Taken 06/16/18] Rosuvastatin Calcium [Rosuvastatin Calcium] 20 mg PO DAILY 06/17/18 [Last Taken 06/16/18] Tamsulosin HCl [Tamsulosin HCl] 0.8 mg PO DAILY 06/17/18 [Last Taken 06/16/18] Terbinafine HCl [Terbinafine HCl] 250 mg PO DAILY 06/17/18 [Last Taken 06/16/18] - NPO status NPO Status: no food or drink >8 hours NPO Since - Liquids (Date): 06/17/18 NPO Since - Liquids (Time): 14:55 NPO Since - Solids (Date): 06/17/18 NPO Since - Solids (Time): 14:55 - Anes Hx Anes Hx: no prior problems - Smoking Hx Smoking Status: Former smoker - Alcohol Use Alcohol Use: Sober - Family Anes Hx Family Anes Hx: none Family Hx Anesthesia Complications: NEG ANE Labs/Vital Signs - Labs Result Diagrams: 06/19/18 04:15 06/19/18 04:15 - Vital Signs Vital Signs: reviewed preoperatively; see RN documention for details Blood Pressure: 140/74 Heart Rate: 54 Respiratory Rate: 16 O2 Sat (%): 95 Height: 187.96 cm Weight: 108.9 kg ANE Physical Exam - Airway Neck exam: FROM Mallampati Score: Class 2 Mouth exam: normal dental/mouth exam - Pulmonary Pulmonary: no respiratory distress - Cardiovascular Cardiovascular: regular rate and rhythym - ASA Status ASA Status: II ANE Anesthesia Plan Anesthesia Plan: general endotracheal anesthesia
[2018-06-19] MEDS ORDERED: LIDOCAINE 2% 100 MG/5 ML SYR ONE (12:34)
[2018-06-19] MEDS ORDERED: DEXAMETHASONE 4 MG/ML VIAL ONE (12:34)
[2018-06-19] MEDS ORDERED: ONDANSETRON 4 MG/2 ML VIAL ONE (12:34)
[2018-06-19] MEDS ORDERED: ROCURONIUM 50 MG/5 ML VIAL ONE (12:34)
[2018-06-19] MEDS ORDERED: PROPOFOL 200 MG/20 ML VIAL ONE (12:35)
[2018-06-19] MEDS ORDERED: fentaNYL 250 MCG/5 ML INJ ONE (12:35)
[2018-06-19] MEDS ORDERED: PHENYLEPHRINE HCL 100 MCG/ML SYR ONE (12:53)
[2018-06-19] MEDS ORDERED: INDOCYANINE GREEN 25 MG VIAL ONE (13:13)
[2018-06-19] MEDS ORDERED: INDOMETHACIN 50 MG SUPP PR ONE (13:15)
[2018-06-19] MEDS: cefOXitin SODIUM 2 GM in NS 100 ML IV ONE ×2 (13:34→13:40)
[2018-06-19] MEDS ORDERED: MEPERIDINE 25 MG/0.5 ML AMP IVP PRN (13:35)
[2018-06-19] MEDS ORDERED: NALOXONE HCL 0.4 MG/ML INJ IVP PRN (13:35)
[2018-06-19] MEDS ORDERED: HYDROmorphONE/DILAUDID 2 MG/ML INJ IVP PRN (13:35)
[2018-06-19] MEDS ORDERED: ONDANSETRON 4 MG/2 ML VIAL IVP PRN (13:35)
[2018-06-19] MEDS ORDERED: DEXAMETHASONE 4 MG/ML VIAL IVP PRN (13:35)
[2018-06-19] MEDS ORDERED: oxyCODONE IR 5 MG TAB PO PRN (13:35)
[2018-06-19] MEDS ORDERED: fentaNYL 100 MCG/2 ML INJ IVP PRN (13:35)
[2018-06-19] MEDS ORDERED: HYDROCODONE/APAP 5/325 TAB PO PRN (13:35)
[2018-06-19] MEDS ORDERED: ACETAMINOPHEN 500 MG TAB PO PRN (13:35)
[2018-06-19] MEDS ORDERED: PROMETHAZINE HCL 25 MG/ML INJ IVP PRN (13:35)
--- NOTE | 2018-06-19 13:41 | GIREPORT ---
Formerly [facility] Surgical Services - Endoscopy Department Patient Name: Kulwant Hoang Procedure Date: 06/19/2018 12:27 PM Patient Type: Inpatient Attending MD/ ER Physician: Les Aragon MD Procedure: ERCP Indications: r/o cbd stone(s) Providers: Les Aragon MD, [facility] Referring MD: Vadim Huerta DO; [facility] Hospitalist service Medicines: See the Anesthesia note for documentation of the administered medicatio ns, Indomethacin [address] Complications: No immediate complications. Description of Procedure: After obtaining informed consent, the scope was passed under direct vis ion. Throughout the procedure, the patient's blood pressure, pulse, and oxyg en saturations were monitored continuously. The Duodenalscope was introduc ed through the mouth, and advanced to the duodenum and used to cannulate t he bile duct. Findings: Grossly nl stomach, duodenum. Periampullary diverticulum, with a nl-appearing ampulla to the side. Selective cholangiogram with a 9 mm cbd. An 11 mm biliary sphincterotomy was made with a sphincterotome. Three balloon sweeps performed, 12 mm, with removal of copious tiny sto gifty (several mm), along with sludge and thick bile. Some aspects of the kingston e had a whitish appearance. Final balloon occlusive cholangiogram normal, wit h no further debris removed with sweep. Estimated Blood Loss: none. Post Op Diagnosis: - small cbd stones, as above, as well as sludge, "thick" bile. Good dra ann post-ERCP. Suspect this will help greatly. Of note, there was a somewhat "whitish" appearance to the bile. With th is, and his continued wbc ct of 17.9, there might be an element of cholangi tis, besides his pancreatitis. Recommendation: - once ok with surgery, clear liquids. Once pain is improved, from his pancreatitis, ok to advance diet, as tolerated. - once taking clears, ok to buffcap IV - would recommend five days of a 'biot; while in-house, would use IV (? continue unasyn), but can then be switched to p.o. I will sign off; we will arrange repeat LFTs in about one month, to gomez e sure they normalize, as I suspect. Else, please call if we can be of fu rther help [phone] Thank you for allowing me to help in the management of this patient. Attending Participation: I personally performed the entire procedure. Margo Saldana MD Les Aragon MD 06/19/2018 1:41:38 PM This report has been signed electronicallyPeter MD Margo Number of Addenda: 0 Note Initiated On: 06/19/2018 12:27 PM [email or web address]
--- NOTE | 2018-06-19 14:10 | POSTANESTH ---
Post Anesthetic Evaluation Cardiovascular Status: Normal, Stable, Similar to Pre-Op Cond Respiratory Status: Normal, Stable, Similar to Pre-op Cond. Level of Consciousness/Mental Status: Can Participate in Eval, Mildly Sleepy, Arousable Pain Control: Adequate, Prn Tx Ordered Nausea/Vomiting Control: Adequate, Prn Tx Ordered Complications Possibly Related to Anesthesia: None Noted
[2018-06-19] MEDS ORDERED: SUGAMMADEX SODIUM 200 MG/2 ML VIAL IVP ONE (14:17)
--- NOTE | 2018-06-19 15:08 | HOSPPROG ---
Hospitalist Progress Note Assessment/Plan: Kulwant Hoang is a 73 y/o male who presented to the ER with epigastric abdominal pain. He also had some associated hypoxia after receiving IV Dilaudid. Today is my first encounter w the patient, chart reviewed. Appreciate Dr Aragon and Dr Monroe. * Gallbladder Pancreatitis, acute -s/p ERCP w concomitant laparoscopic cholecystectomy -having pain during my evaluation, has IV pain medications ordered -will continue IV fluids and NPO *acute cholecystitis -s/p cholecystectomy -wbc count still elevated -cont IV abx (cefoxitin) *pain due to the above -continue pain medications *transaminitis -due to the above *HLD -hold statin in the setting of elevated LFT's *hypoxemia secondary to atelectasis -needs to deep breath *dvt prophylaxis: Lovenox on hold - surgery today Subjective: Brain is c/o pain in his abdomen. (just up from PACU) Objective: Vital Signs Temp Pulse Resp BP Pulse Ox 36 C 53 L 18 144/90 H 92 06/19/18 14:27 06/19/18 14:26 06/19/18 14:45 06/19/18 14:45 06/19/18 14:45 Laboratory Results 06/19/18 04:15 06/19/18 04:15 06/18/18 06/19/18 06/20/18 05:59 05:59 05:59 Intake Total 0 4281 1160 Output Total 400 550 20 Balance -400 3731 1140 - Physical Exam Constitutional: uncomfortable, No not in pain Ears, Nose, Mouth, Throat: hearing normal Cardiovascular: regular rate and rhythym Respiratory: no respiratory distress, reduced air movement Gastrointestinal: tenderness, other (3 small incisions on abd w steri strips in place) Skin: warm Neurologic: other (sleepy) Psychiatric: interacting appropriately ICD10 Worksheet Patient Problems: Problems Problem Status Onset Acute pancreatitis Acute
--- NOTE | 2018-06-19 15:12 | POSTOPPROG ---
Post Op Note Date of Operation: 06/19/18 Surgeon: Taj Monroe Anesthesiologist: ELIS Anesthesia: GET(General Endotracheal) Pre-op Diagnosis: ACUTE CHOLECYSTITIS Post-op Diagnosis: SAME Indication: PAIN Procedure: LAP CHOLY Findings: NECROTIC GALLBLADDER WITH HYDROPS Inf/Abcess present in the surg proc area at time of surgery?: Yes Depth: Organ Space EBL: 50-100 Complications: NONE Specimen(s): GALLBLADDER AND CULTURES
[2018-06-19] MEDS ORDERED: D5W 1/2 NS W/ 20 KCl/L 1,000 ML IV SCH (15:15)
[2018-06-19] MEDS: cefOXitin SODIUM 2 GM in NS 100 ML IV SCH (17:43)
[2018-06-20] MEDS: cefOXitin SODIUM 2 GM in NS 100 ML IV SCH ×3 (00:26→12:09)
[2018-06-20] MEDS: TAMSULOSIN HCL 0.4 MG CAP PO SCH (08:04)
[2018-06-20] MEDS: FAMOTIDINE 20 MG TAB PO SCH (08:04)
--- NOTE | 2018-06-20 08:36 | HOSPPROG ---
Hospitalist Progress Note Assessment/Plan: Kulwant Hoang is a 73 y/o male who presented to the ER with epigastric abdominal pain. He also had some associated hypoxia after receiving IV Dilaudid. Today is my first encounter w the patient, chart reviewed. Appreciate Dr Aragon and Dr Monroe. * Gallbladder Pancreatitis, acute -s/p ERCP w concomitant laparoscopic cholecystectomy on 06/19 *acute cholecystitis -s/p cholecystectomy (necrotic gallbladder w hydrops) -cefoxitin -dc home on augmentin *pain due to the above -resolve *transaminitis -should now improve *HLD -hold statin in the setting of elevated LFT's *hypoxemia secondary to atelectasis -resolved *hypotension -mild, not symptomatic *plan: appreciate surgical team Subjective: Kulwant feels well, ambulating, eating, no pain except some pain at surgical sites Objective: Vital Signs Temp Pulse Resp BP Pulse Ox 36.5 C 53 L 16 103/62 92 06/20/18 04:00 06/20/18 04:00 06/20/18 04:00 06/20/18 04:00 06/20/18 04:00 Microbiology 06/19/18 14:39 Gram Stain - Final Gallbladder - Eswab Laboratory Results 06/19/18 04:15 06/20/18 04:17 06/19/18 06/20/18 06/21/18 05:59 05:59 05:59 Intake Total 4281 5397 Output Total 550 720 400 Balance 3731 4677 -400 - Physical Exam Constitutional: no apparent distress, appears nourished Eyes: PERRL Ears, Nose, Mouth, Throat: hearing normal Cardiovascular: regular rate and rhythym, bradycardia Respiratory: no respiratory distress Gastrointestinal: other (incisions on abdomen well approximated, no drainage, no redness), No normoactive bowel sounds (hypoactive) Skin: warm Musculoskeletal: full muscle strength Neurologic: AAOx3 Psychiatric: interacting appropriately ICD10 Worksheet Patient Problems: Problems Problem Status Onset Acute pancreatitis Acute
--- NOTE | 2018-06-20 09:31 | ASMTCMCOM ---
CM Note CM Note Notes: Pt had a lap choly with Dr. Monroe yesterday. Pt will most likely d/c independent when medically stable. No therapies ordered at this time. CM available for changes. Plan: Independent Date Signed: 06/20/2018 09:30 AM Electronically Signed By:RYANN Cabrera
[2018-06-20 11:35] VITALS: BP 107/61
[2018-06-20] MEDS: HYDROmorphONE/DILAUDID 2 MG TAB PO PRN (12:10)
--- NOTE | 2018-06-20 12:15 | SOAPPROG ---
SOAP Progress Note Assessment/Plan: Assessment/Plan: 73 Y M s/p ERCP, lap jax, POD#1. Seen with Dr. Monroe. Doing well. D/c to home c PO abx and early outpatient f/u. S: feels better. eating ok. passing gas O: alert, nad no jaundice no wob abd softly bloated, appropriately ttp, inc cdi 06/20/18 12:13 Objective: Vital Signs Temp Pulse Resp BP Pulse Ox 36.6 C 55 L 16 107/61 92 06/20/18 11:34 06/20/18 11:34 06/20/18 11:34 06/20/18 11:34 06/20/18 11:34 Microbiology 06/19/18 14:39 Gram Stain - Final Gallbladder - Eswab Laboratory Results 06/19/18 04:15 06/20/18 04:17 06/19/18 06/20/18 06/21/18 05:59 05:59 05:59 Intake Total 4282 8681 Output Total 591 253 400 Balance 3731 4638 -400 ICD10 Worksheet Patient Problems: Problems Problem Status Onset Acute pancreatitis Acute
--- NOTE | 2018-06-20 12:56 | GDS ---
DISCHARGE DIAGNOSES: 1. Acute gallbladder pancreatitis. 2. Acute cholecystitis. 3. Pain due to this. 4. Transaminitis. 5. Hyperlipidemia. 6. Hypoxemia. 7. Hypotension. CONSULTATIONS: 1. Dr. Les Aragon. 2. Dr. Shafer. 3. Dr. Taj Monroe. HISTORY: Briefly, the patient is a 73-year-old gentleman who presented to the emergency room on 2017 with acute abdominal pain, mainly located in the epigastric area. He had similar sympto ms approximately 6 weeks prior to this. It was noted on admission that he had very high liver enzyme s and noted pancreatitis. He was seen and evaluated by Gastroenterology because of the elevated live r enzymes and subsequently had an ERCP. This noted small common bile duct stones, as well as sludge. Subsequently, he was seen and evaluated by Dr. Monroe on the same day and had a laparoscopic cholecy stectomy. The patient is feeling markedly better today. He is eating and drinking well. He will be discharged home and further follow up with Dr. Monroe in the outpatient setting. HOSPITAL COURSE: 1. Gallbladder pancreatitis. This is due to stones. He had an ERCP with concomitant laparoscopic c holecystectomy. He has done well. 2. Acute cholecystitis. He is status post a cholecystectomy. It was noted that he had a necrotic g allbladder with hydrops. He was treated with cefoxitin. He will be discharged home on Augmentin. 3. Pain due to this resolved. 4. Transaminitis should improve. 5. Hyperlipidemia. I have recommended he hold his statin until his liver enzymes stabilize. 6. Hypoxemia, resolved. 7. Hypotension. This is mild. He is not symptomatic. DISCHARGE CONDITION: Stable. Blood pressure is 107/67, heart rate of 55, respiratory rate of 16, O2 sats on room air 92%. Temperature is 36.6 Celsius. DISCHARGE MEDICATIONS: Please see the EMR. DISCHARGE INSTRUCTIONS: 1. To follow up with Dr. Monroe. 2. No lifting over 20 pounds. It is okay to shower. 3. Hold his statin until his liver enzymes improve. To follow up with his primary care provider in 2 weeks. 4. Low-fat diet. 5. Take a stool softener while on the narcotic pain medications. /[id number]/MODL
== END 2018-06-20 13:50 | disposition home or self-care (01) | DRG 418 ==
LOC: F3E 15:20
PROVIDERS: ADMIT Internal Medicine; ATTEND Internal Medicine
PROC: 0FC98ZZ Extirpation of Matter from Common Bile Duct, Via Natural or Artificial Opening Endoscopic (ICD-10-PCS; principal; 2018-06-19 12:15)
PROC: 0FT44ZZ Resection of Gallbladder, Percutaneous Endoscopic Approach (ICD-10-PCS; principal; 2018-06-19 12:15)
DX: K85.11 Biliary acute pancreatitis with uninfected necrosis (principal); K81.0 Acute cholecystitis; R74.0 Nonspecific elevation of levels of transaminase and lactic acid dehydrogenase [LDH]; E78.5 Hyperlipidemia, unspecified; R09.02 Hypoxemia; I95.9 Hypotension, unspecified; N40.0 Benign prostatic hyperplasia without lower urinary tract symptoms; Z85.820 Personal history of malignant melanoma of skin; Z23 Encounter for immunization
CPT/HCPCS: 96374; A9585; G0008; J0295; J0694; J1100; J1170; J1610; J1650; J1885; J2001; J2250; J2370; J2405; J2704; J3010; Q9961